=== PATIENT | male | born 1980 | race Caucasian/White ===

== ENCOUNTER 2022-01-23 01:05 | Emergency (ER) | payer OTHER, BC ==
[~2022-01-23] VITALS: Ht 175.3 cm; Wt 162.4 kg
[2022-01-23 01:21] VITALS: BP_SYST 156
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
[2022-01-23] MEDS ORDERED: SULF5DRO LEFT EYE (01:37)
[2022-01-23] MEDS ORDERED: ACETAMINOPHEN 500 MG TABLET PO ONE (01:45)
[2022-01-23] MEDS ORDERED: ACETAMINOPHEN 500 MG TABLET ONE (01:48)
--- NOTE | 2022-01-23 01:51 | NUR ---
PT PROVIDED WITH HOMECARE INSTRUCTIONS AND NEW PRESCRIPTION. COMPLETED WORK RELATED DOCUMENTS PER PT REQUEST. PT DISCHARGED WITH ALL BELONGINGS IN STABLE CONDITION.
== END 2022-01-23 01:53 | disposition home or self-care (01) ==
LOC: SED 01:05
DX: S70.12XA Contusion of left thigh, initial encounter (principal); I10 Essential (primary) hypertension; J45.909 Unspecified asthma, uncomplicated; Z88.0 Allergy status to penicillin; Z88.5 Allergy status to narcotic agent; Z79.899 Other long term (current) drug therapy; Y04.0XXA Assault by unarmed brawl or fight, initial encounter; Y93.89 Activity, other specified; Y92.89 Other specified places as the place of occurrence of the external cause; Y99.0 Civilian activity done for income or pay
CPT/HCPCS: 99282